=== PATIENT | female | born 1965 | race Caucasian/White ===

== ENCOUNTER → 2022-05-13 | Outpatient (CLI) | payer OTHER ==
--- NOTE | 2022-05-14 18:29 | MM ---
Reason for Exam: Screening (asymptomatic). Last mammogram was performed 1 year(s) and 4 month(s) ago. Patient History: Menarche at age 18. First Full-Term at age 27. Postmenopausal. Currently using Progesterone, starting at age 53. Currently using Estrogen and Progesterone, starting at age 53. Risk Values: Krystal 5 year model risk: 1.3%. NCI Lifetime model risk: 8.0%. Prior Study Comparison: 01/02/2019 Bilateral MG 3D screening mammo w/cad, Unknown. 08/06/2019 Bilateral MG 3D screening mammo w/cad, Unknown. 12/28/2020 Bilateral MG 3D screening mammo w/cad, Unknown. Tissue Density: There are scattered fibroglandular densities. Findings: Analyzed By CAD. Asymmetric density central outer left CC view at middle depth is more defined and incompletely disperses on 3-D images. Otherwise, no significant change from prior exams. Overall Assessment: Incomplete: need additional imaging evaluation, BI-RAD 0 Management: Special View Mammogram of the left breast. Including spot 3-D CC, 3-D CC rolled medial, and 3-D ML views. Targeted left breast ultrasound if any persisting abnormality. [facility] will attempt to contact patient to return for supplemental views and ultrasound if indicated. Electronically signed and approved by: Evelin Leahy M.D. Radiologist
== END | disposition home or self-care (01) ==
LOC: RADMAMWWP 13:39
PROVIDERS: ATTEND Family Medicine
DX: Z12.31 Encounter for screening mammogram for malignant neoplasm of breast (principal); Z78.0 Asymptomatic menopausal state
CPT/HCPCS: 77063; 77067

== ENCOUNTER → 2022-05-20 | Outpatient (CLI) | payer OTHER ==
--- NOTE | 2022-05-20 10:59 | MM ---
Reason for Exam: Additional evaluation requested from prior study. Last screening mammogram was performed less than 1 month ago. Patient History: Menarche at age 18. First Full-Term at age 27. Postmenopausal. Currently using Progesterone, starting at age 53. Currently using Estrogen and Progesterone, starting at age 53. Risk Values: Krystal 5 year model risk: 1.3%. NCI Lifetime model risk: 8.0%. Prior Study Comparison: 08/06/2019 Bilateral MG 3D screening mammo w/cad, Unknown. 12/28/2020 Bilateral MG 3D screening mammo w/cad, Unknown. 05/13/2022 Bilateral MG 3D screening mammo w/cad, [facility]. Tissue Density: Left: There are scattered fibroglandular densities. Findings: Analyzed By CAD. Focal asymmetry within the left breast upper outer quadrant and measures No evidence of mass on 3-D imaging or on compression. Findings most consistent with fibroglandular tissue. Overall Assessment: Benign, BI-RAD 2 Management: Screening Mammogram of both breasts in 1 year. A clinical breast exam by your physician is recommended on an annual basis and results should be correlated with mammographic findings. This exam should not preclude additional follow-up of suspicious palpable abnormalities. Results were given to the patient verbally at the time of exam. Electronically signed and approved by: Moses Singletary DO
== END | disposition home or self-care (01) ==
LOC: RADMAMWWP 10:24
PROVIDERS: ATTEND Family Medicine
DX: R92.8 Other abnormal and inconclusive findings on diagnostic imaging of breast (principal); Z78.0 Asymptomatic menopausal state
CPT/HCPCS: 77061; 77065

== ENCOUNTER → 2023-05-21 | Outpatient (CLI) | payer OTHER ==
--- NOTE | 2023-05-22 09:24 | MM ---
Reason for Exam: Screening (asymptomatic). Last screening mammogram was performed 12 month(s) ago. Patient History: Menarche at age 18. First Full-Term at age 27. Postmenopausal. Currently using Progesterone, starting at age 53. Currently using Estrogen and Progesterone, starting at age 53. Risk Values: Krystal 5 year model risk: 1.4%. NCI Lifetime model risk: 7.8%. Prior Study Comparison: 12/28/2020 Bilateral MG 3D screening mammo w/cad, Unknown. 05/13/2022 Bilateral MG 3D screening mammo w/cad, [facility]. 05/20/2022 Left MG 3D work up w/cad LT, [facility]. Tissue Density: There are scattered fibroglandular densities. Findings: Analyzed By CAD. There is no suspicious group of microcalcifications or new suspicious mass. Overall Assessment: Negative, BI-RAD 1 Management: Screening Mammogram of both breasts in [address] [facility] will attempt to contact patient to return for supplemental views and ultrasound if indicated. Patient should continue monthly self-breast exams. A clinical breast exam by your physician is recommended on an annual basis. This exam should not preclude additional follow-up of suspicious palpable abnormalities. Note on Krystal scores and lifetime risk: 1. A Krystal score greater than 3% is considered moderate risk. If this is the case, consider specialist referral to assess eligibility for a risk reducing agent. 2. If overall lifetime risk for the development of breast cancer is 20% or higher, the patient may qualify for future screening with alternating mammogram and breast MRI. Electronically signed and approved by: Moses Singletary DO
== END | disposition home or self-care (01) ==
LOC: RADMAMWWP 10:50
PROVIDERS: ATTEND Family Medicine
DX: Z12.31 Encounter for screening mammogram for malignant neoplasm of breast (principal); Z78.0 Asymptomatic menopausal state
CPT/HCPCS: 77063; 77067

== ENCOUNTER → 2024-02-17 | Outpatient (CLI) | payer OTHER ==
--- NOTE | 2024-02-17 14:46 | US ---
EXAMINATION TYPE: US carotid duplex BILAT DATE OF EXAM: 02/17/2024 COMPARISON: NONE CLINICAL INDICATION: Female, 58 years old with history of R42 DIZZY GIDDY; dizzy TECHNIQUE: Carotid duplex ultrasound examination. Indirect Doppler criteria was utilized. FINDINGS: EXAM MEASUREMENTS: RIGHT: Peak Systolic Velocity (PSV) cm/sec ----- Right CCA: 85.1 ----- Right ICA: 72.8 ----- Right ECA: 113 ICA/CCA ratio: .9 RIGHT: End Diastole cm/sec ----- Right CCA: 19.5 ----- Right ICA: 16.9 ----- Right ECA: 16.2 LEFT: Peak Systolic Velocity (PSV) cm/sec ----- Left CCA: 75.4 ----- Left ICA: 78 ----- Left ECA: 114 ICA/CCA ratio: 1.0 LEFT: End Diastole cm/sec ----- Left CCA: 16.2 ----- Left ICA: 19.5 ----- Left ECA: 16.9 VERTEBRALS (direction of flow): Right Vertebral: Antegrade Left Vertebral: Antegrade Rhythm: Normal SERVICE SECRETARY NOTES: No significant stenosis seen IMPRESSION: No evidence for hemodynamically significant stenosis Criteria for Assigning % of Stenosis / Diameter reduction (Estimation based on the indirect measurements of the internal carotid artery velocities (ICA PSV). 1. Normal (no stenosis)=ICA PSV < 125 cm/s: ratio < 2.0: ICA EDV<40 cm/s. 2. Less than 50% stenosis=ICA PSV < 125 cm/s: ratio < 2.0: ICA EDV<40 cm/s. 3. 50 to 69% stenosis=ICA PSV of 125 to 230 cm/s: ration 2.0 ? 4.0: ICA EDV 40-100 cm/s. 4. Greater than 70% stenosis to near occlusion= ICA PSV > 230 cm/s: ratio > 4.0: ICA EDV > 100 cm/s. 5. Near occlusion= ICA PSV velocities may be low or undetectable: variable ratio and ICA EDV. 6. Total occlusion=unable to detect flow.
== END | disposition home or self-care (01) ==
LOC: RADUSWWP 14:20
PROVIDERS: ATTEND Family Medicine
DX: R42 Dizziness and giddiness (principal)
CPT/HCPCS: 93880

== ENCOUNTER → 2024-02-20 | Outpatient (CLI) | payer OTHER ==
--- NOTE | 2024-02-20 10:54 | CT ---
EXAMINATION TYPE: CT brain cspine wo con CT DLP: 1684 mGycm, Automated exposure control for dose reduction was used. DATE OF EXAM: 02/20/2024 10:37 AM COMPARISON: None.. CLINICAL INDICATION:Female, 58 years old with history of R42 DIZZINESS AND GIDDINESS M50.30 OTHER CER VICAL; Nausea, fatigue and dizziness x2 wks off and on. Neck pain x months. TECHNIQUE: Brain: Multiple axial CT images of the brain were obtained without IV contrast. Cspine: Axial CT images from the skull base to the inferior aspect of T2 we obtained without intraven ous contrast. Coronal and sagittal reformatted images were also reviewed. FINDINGS: Brain: Extra-axial spaces: No abnormal extra-axial fluid collections. Ventricular system: Within normal limits Cerebral parenchyma: No acute intraparenchymal hemorrhage or mass effect. The garner-white junction is well differentiated. Cerebellum: Unremarkable. Mass effect: No evidence of midline shift. Intracranial vasculature: unremarkable Soft tissues: Normal. Calvarium/osseous structures: No depressed skull fracture. Paranasal sinuses and mastoid air cells: Clear. Visualized orbits: Orbital contents are intact. Cervical spine: Fracture: None. Osseous structures: Anterior osteophytosis at C5-C6. Vertebral alignment: Minimal grade 1 anterolisthesis of C3 on C4. Spinal canal/Neural Foramina: Disc space narrowing identified at C4-C5 and C5-C6 with posterior disc osteophytes resulting in at least mild central canal stenosis. Uncovertebral joint hypertrophy with m ild right neural foraminal stenosis at C3-C4, mild bilateral neural foraminal stenosis at C4-C5, unco vertebral joint hypertrophy with moderate left neural foraminal stenosis at C5-C6. Neck soft tissues: Prevertebral soft tissues are within normal limits. Right superficial parotid glan d 8 millimeter hyperdense lesion. Other: The airway is patent. Mild mucosal thickening of the bilateral inferior maxillary sinuses. IMPRESSION: 1. No acute intracranial process. 2. No evidence of cervical spine fracture. 3. Mild degenerative disc disease from C4 through C6. There are very degrees of multilevel neural fo raminal stenosis secondary to uncovertebral joint hypertrophy. This is most prominent at C5-C6 on the left with moderate neuroforaminal stenosis. 4. Minimal grade 1 anterolisthesis of C3 on C4. 5. Right parotid gland 8 mm hyperdense lesion which may represent a intraparotid lymph node versus s alivary gland neoplasm. Further evaluation with ultrasound is recommended.
== END | disposition home or self-care (01) ==
LOC: RADCTMAIN 10:03
PROVIDERS: ATTEND Family Medicine
DX: R42 Dizziness and giddiness (principal); M50.321 Other cervical disc degeneration at C4-C5 level; M48.02 Spinal stenosis, cervical region; M43.12 Spondylolisthesis, cervical region
CPT/HCPCS: 70450; 72125

== ENCOUNTER → 2024-05-24 | Outpatient (CLI) | payer OTHER ==
--- NOTE | 2024-05-25 10:33 | MM ---
Reason for Exam: Screening (asymptomatic). Last screening mammogram was performed 12 month(s) ago. Patient History: Menarche at age 18. First Full-Term at age 27. Postmenopausal. Currently using Progesterone, starting at age 53. Currently using Estrogen and Progesterone, starting at age 53. Risk Values: Krystal 5 year model risk: 1.4%. NCI Lifetime model risk: 7.6%. Prior Study Comparison: 05/13/2022 Bilateral MG 3D screening mammo w/cad, [facility]. 05/20/2022 Left MG 3D work up w/cad LT, [facility]. 05/21/2023 Bilateral MG 3D screening mammo w/cad, [facility]. Tissue Density: There are scattered areas of fibroglandular density. Findings: Analyzed By CAD. A few benign oil cyst calcifications on the right. There is no suspicious group of microcalcifications or new suspicious mass in either breast. Overall Assessment: Negative, BI-RAD 1 Management: Screening Mammogram of both breasts in 1 year. . Patient should continue monthly self-breast exams. A clinical breast exam by your physician is recommended on an annual basis. This exam should not preclude additional follow-up of suspicious palpable abnormalities. Note on Krystal scores and lifetime risk: 1. A Krystal score greater than 3% is considered moderate risk. If this is the case, consider specialist referral to assess eligibility for a risk reducing agent. 2. If overall lifetime risk for the development of breast cancer is 20% or higher, the patient may qualify for future screening with alternating mammogram and breast MRI. [facility], , 05/25/2024 10:30 AM. Electronically signed and approved by: Evelin Leahy M.D. Radiologist
== END | disposition home or self-care (01) ==
LOC: RADMAMWWP 12:12
PROVIDERS: ATTEND Family Medicine
DX: Z12.31 Encounter for screening mammogram for malignant neoplasm of breast
CPT/HCPCS: 77063; 77067